=== PATIENT | female | born 1955 | race Caucasian/White ===

== ENCOUNTER 2024-08-23 06:06 | Day surgery (SDC) | payer MEDICARE, SELFPAY ==
[2024-06-28 15:17] VITALS: BMI 29.3
[2024-08-23 06:58] VITALS: BP 152/83; PULSE 74; RESP 14; TEMP 37.1; O2SAT 98
--- NOTE | 2024-08-23 07:21 | P.PNAN_ITS ---
Anes - Initial Pre Proc Eval Procedure: Operation Date: 08/23/24 08:00 Proposed Procedures p Esophagogastroduodenoscopy - Cristian Becerra MD s Screening Colonoscopy - Cristian Becerra MD Date/Time: 08/23/24 07:21 Surgeon: Cristian Becerra MD Pre Op Diagnosis: GERD, Screening Neoplasm of Colon Patient Data Age: 69 Gender: F Height: 1.6 m Weight: 74.2 kg Last Vital Signs Temp 37.1 C 08/23/24 06:58 Pulse 74 08/23/24 06:58 Resp 14 08/23/24 06:58 BP 152/83 H 08/23/24 06:58 Pulse Ox 98 08/23/24 06:58 O2 Del Method Room Air 08/23/24 06:58 Allergies Allergy/AdvReac Type Severity Reaction Status Date / Time No Known Allergies Allergy Verified 08/23/24 06:55 Home Medications ?Medication ?Instructions ?Recorded ?Confirmed ?Type calcium 1 tab-cap PO DIRECTED 08/02/24 08/23/24 History cholecalciferol (vitamin D3) 50 50 mcg PO DAILY 08/02/24 08/23/24 History mcg (2,000 unit) capsule (Vitamin D3) cranberry 1 tab-cap PO DIRECTED 08/02/24 08/23/24 History ezetimibe 10 mg tablet 1 mg PO DIRECTED 08/02/24 08/23/24 History losartan 100 mg tablet 100 mg PO DAILY 08/02/24 08/23/24 History omeprazole 20 mg capsule,delayed 20 mg PO DIRECTED 08/02/24 08/23/24 History release Patient hx anesthesia problems: none Family hx anesthesia problems: none Results Review: All pre-operative results and documents have been reviewed as part of the pre- operative evaluation. [facility] Past Medical History Medical History (Updated 08/23/24 @ 07:21 by Den Whitman MD) Overweight Hyperlipidemia HTN (hypertension) Surgical History Surgical History (Updated 08/23/24 @ 07:22 by Den Whitman MD) History of esophagogastroduodenoscopy H/O colonoscopy Social History Social History Smoking status: Never smoker Alcohol intake: current Drinks per week: 6 Substance use type: does not use Living arrangements: with family Anes - Eval Final PreProcedure Day of Procedure 08/23/24 07:21 Patient weight: overweight Heart: regular rate and rhythm Lungs: clear to auscultation Airway: Mallampati scale class II Neurological: alert and oriented Last oral intake: >/= 8 hours ASA classification: II Emergent: no Anesthesia type and monitoring: general GIVS and standard monitoring Results Review: All pre-operative results and documents have been reviewed as part of the pre- operative evaluation. Informed Consent: The patient's anesthetic plan and its attendant risks and benefits were discussed with the patient/family/POA. Questions were solicited and answers provided to the satisfaction of the patient/family/POA.
--- NOTE | 2024-08-23 07:24 | PM.HPGS ---
History of Present Illness History of Present Illness Consent: Risks, benefits, and alternatives have been discussed and questions answered. Patient agrees to proceed with procedure. Chief complaint: GERD, Screening Neoplasm of Colon Narrative: Karina Gardiner is a 69 year old female recur colonoscopy and EGD desires neoplasia screening colonoscopy. It has been 10 years since last colonoscopy. The patient reports that her bowel habits are normal with no pain. No bleeding. Family history is noncontributory. Patient additionally has a distant history of esophageal web requiring dilatation 20 years ago. She was diagnosed as having acid reflux. Ten years ago endoscopy was performed and she was told that she may have eosinophilic esophagitis. She has been maintained on a PPI. Patient denies any heartburn. Currently denies any difficulty swallowing. Her family history is noncontributory. She desires follow-up EGD to assess this. Review of Systems Review of Systems: All systems reviewed & are unremarkable except as noted in HPI and below PMFSH Past Medical History Medical History (Updated 08/23/24 @ 07:27 by Cristian Becerra MD) Overweight Hyperlipidemia HTN (hypertension) Surgical History Surgical History (Updated 08/23/24 @ 07:22 by Den Whitman MD) History of esophagogastroduodenoscopy H/O colonoscopy Social History Social History Smoking status: Never smoker Alcohol intake: current Drinks per week: 6 Substance use type: does not use Living arrangements: with family Meds Home Medications and Allergies Home Medications ?Medication ?Instructions ?Recorded ?Confirmed ?Type calcium 1 tab-cap PO DIRECTED 08/02/24 08/23/24 History cholecalciferol (vitamin D3) 50 50 mcg PO DAILY 08/02/24 08/23/24 History mcg (2,000 unit) capsule (Vitamin D3) cranberry 1 tab-cap PO DIRECTED 08/02/24 08/23/24 History ezetimibe 10 mg tablet 1 mg PO DIRECTED 08/02/24 08/23/24 History losartan 100 mg tablet 100 mg PO DAILY 08/02/24 08/23/24 History omeprazole 20 mg capsule,delayed 20 mg PO DIRECTED 08/02/24 08/23/24 History release Allergies Allergy/AdvReac Type Severity Reaction Status Date / Time No Known Allergies Allergy Verified 08/23/24 06:55 Vital Signs Vital Signs - 24 hr 08/23/24 06:58 Temperature 98.7 F Pulse Rate 74 Respiratory Rate 14 Blood Pressure 152/83 H Pulse Oximetry 98 Oxygen Delivery Room Air Exam Narrative: Physical exam reveals patient to be alert. Vital signs stable. HEENT exam is unremarkable. Patient is anicteric. Lungs are clear to auscultation and to percussion. Heart is without murmur or extra sounds. Abdomen bowel sounds are present soft nontender with no organomegaly. Digital external rectal exam normal. Assessment and Plan Assessment and plan (1) Screen for colon cancer: Code(s): Z12.11 - Encounter for screening for malignant neoplasm of colon Status: Acute Assessment and Plan: Patient presents for neoplasia screening colonoscopy. She appears to be at average risk for colon polyps. Further recommendations may be given after endoscopy. (2) GERD (gastroesophageal reflux disease): Code(s): K21.9 - Gastro-esophageal reflux disease without esophagitis Status: Acute Assessment and Plan: Patient previously told she had acid reflux with sliding hiatal hernia and a distal esophageal web. Several years ago was told she may have eosinophilic esophagitis. Currently stable on PPI therapy. Plan for EGD to assess more thoroughly and for follow-up at this time.
[2024-08-23] MEDS: LACTATED RINGERS 1,000 ML 150 ML IV CONT (07:25)
[2024-08-23 08:28] VITALS: BP 118/55; PULSE 73; RESP 16; O2SAT 98
[2024-08-23 08:38] VITALS: BP 128/69; PULSE 65; RESP 16; O2SAT 100
[2024-08-23 08:48] VITALS: BP 125/64; PULSE 67; RESP 18; O2SAT 100
--- NOTE | 2024-08-23 08:57 | WPDANESPN ---
Anes - Prog Note Post-Op Date/Time: 08/23/24 08:57 Cardiovascular status: normal Respiratory status: normal Airway patency: baseline Mental status: baseline Post-Op hydration status: normal Vital Signs: Last Vital Signs Temp 37.1 C 08/23/24 06:58 Pulse 73 08/23/24 08:28 Resp 16 08/23/24 08:28 BP 118/55 L 08/23/24 08:28 Pulse Ox 98 08/23/24 08:28 O2 Del Method Room Air 08/23/24 08:28 Pain Score (VAS): 0/10 I/O: Intake & Output 08/22/24 08/23/24 08/23/24 23:59 07:59 15:59 Intake Total 600 Balance 600 Patient Feedback: Patient satisfied with anesthetic care.
== END 2024-08-23 09:03 | disposition home or self-care (01) ==
PROVIDERS: PCP Student in an Organized Health Care Education/Training Program; Visit Provider Internal Medicine Gastroenterology
PROC: 0DJ08ZZ Inspection of Upper Intestinal Tract, Via Natural or Artificial Opening Endoscopic (ICD-10-PCS; CPT 43235; principal; 2024-08-23 08:00)
PROC: 0DJD8ZZ Inspection of Lower Intestinal Tract, Via Natural or Artificial Opening Endoscopic (ICD-10-PCS; CPT 45378; 2024-08-23 08:00)
DX: Z12.11 Encounter for screening for malignant neoplasm of colon (principal); K21.9 Gastro-esophageal reflux disease without esophagitis; Q39.4 Esophageal web
CPT/HCPCS: 45378; 43450; 43239

== ENCOUNTER 2024-08-23 07:00 | Outpatient (NON) | payer MEDICARE, SELFPAY | END 2024-08-23 07:01 | disposition home or self-care (01) | LOC: ANHLAB 08-24 09:27 | PROVIDERS: PCP Student in an Organized Health Care Education/Training Program; Visit Provider Internal Medicine Gastroenterology | DX: K21.9 Gastro-esophageal reflux disease without esophagitis (principal); Z12.11 Encounter for screening for malignant neoplasm of colon | CPT/HCPCS: 88305 ==